=== PATIENT | male | born 1990 | race Caucasian/White ===

== ENCOUNTER 2018-10-12 16:16 | Emergency (ER) | payer OTHER ==
[~2018-10-12] VITALS: Ht 165.1 cm; Wt 127.0 kg
[~2018-10-12 16:16] MED LIST: BACTRIM DS TAB1 EACH PO; DARVOCET-N 1001 EACH PO; KEFLEX250 MG PO; NOHOMEMEDICATIONS
[2018-10-12 16:58] LABS: BASOPHILS 0.3 % (0.0-2.0); EOSINOPHILS 0.3 % (0.0-3.0); HEMATOCRIT 46.6 % (42.0-52.0); HEMOGLOBIN 16.4 gm/dL (14.0-18.0); LYMPHOCYTES 18.3 % (24.0-44.0); MCH 31.6 pg (26.0-34.0); MCHC 35.1 g/dL (28.0-37.0); MCV 89.8 fL (80.0-100.0); MONOCYTES 6.2 % (1.0-8.0); PLATELET COUNT 218 thou/uL (150-400); POLYS 74.9 % (36.0-66.0); RBC 5.18 mil/uL (4.50-6.00); RDW 12.9 % (10.5-14.5); WBC 12.1 thou/uL (4.0-11.0)
[2018-10-12 17:02] LABS: ANION GAP 8 mmol/L (7-16); BUN 19 mg/dL (7-18); CALCIUM 9.4 mg/dL (8.5-10.1); CHLORIDE 102 mmol/L (98-107); CO2 26 mmol/L (21-32); CREATININE 0.8 mg/dL (0.7-1.3); GLUCOSE 90 mg/dL (74-106); SODIUM 136 mmol/L (136-145)
[2018-10-12 17:11] LABS: TROPONIN-I <0.06 ng/mL (<0.06)
[2018-10-12] MEDS ORDERED: MOBIC7.5 MG PO (18:38)
[2018-10-12 19:26] VITALS: BP 112/65
--- NOTE | 2018-10-13 22:06 | EKG ---
[address] [address] ELECTROCARDIOGRAM REPORT Name: SUSAN ABDUL Room #: DEP Ratna#: [id number] Admission: 10/12/18 Attend Phys: Discharge: 10/12/18 Date of : 89 Report #: [id number] THIS REPORT FOR: //name// [facility] ED Test Date: 2018-10-12 Test Time: 16:26:19 Pat Name: SUSAN ABDUL Department: Room: Gender: Medical Coder: [facility] : 1990 Requested By: Mary Lucas Order Number: [id number] MD: Mac Lyons Measurements Intervals [place] Rate: 102 P: 18 AK: 156 QRS: 30 QRSD: 82 T: 18 QT: 320 QTc: 417 Interpretive Statements Sinus tachycardia No previous ECG available for comparison Electronically Signed On 10-13-2018 22:06:04 [employer] by Mac Lyons [email or web address] <ELECTRONICALLY SIGNED> By: Mac Lyons MD 10/13/18 [id number] 1626 Mac Lyons MD /EPI
== END 2018-10-12 19:29 | disposition home or self-care (01) ==
LOC: ER 16:16
PROVIDERS: Nurse Practitioner Family
DX: R07.89 Other chest pain (principal); Z88.0 Allergy status to penicillin

== ENCOUNTER → 2020-08-06 | Outpatient (CLI) | payer OTHER ==
[~2020-08-06] MED LIST changes: +MOBIC7.5 MG PO
== END ==
LOC: LAB 12:30
PROVIDERS: ATTEND Family Medicine
DX: Z20.828 Contact with and (suspected) exposure to other viral communicable diseases (principal)